=== PATIENT | female | born 1970 | race Hispanic/Latino ===

== ENCOUNTER 2018-03-30 03:38 | Emergency (ER) | payer OTHER ==
[2018-03-30 04:19] LABS: BASOPHILS % (AUTO) 0.7 % (0.0-5.0); EOSINOPHILS % (AUTO) 2.8 % (0.0-8.0); HEMATOCRIT 35.1 % (36-48); LYMPHOCYTES % (AUTO) 37.8 % (21.0-51.0); MEAN CORPUSCULAR HEMOGLOBIN 28.9 pg (27.0-33.0); MEAN CORPUSCULAR HGB CONC 33.9 g/dL (32.0-36.0); MEAN CORPUSCULAR VOLUME 85.2 fL (79-99); MONOCYTES % (AUTO) 7.3 % (3.0-13.0); NEUTROPHILS % (AUTO) 51.4 % (40.0-77.0); PLATELET COUNT (AUTO) 347 K/uL (130-400); RED BLOOD CELL COUNT(AUTO) 4.12 MIL/uL (4.00-5.50); RED CELL DISTRIBUTION WIDTH 14.1 % (11.0-15.5); WHITE BLOOD COUNT (AUTO) 10.8 K/uL (4.8-10.8)
[2018-03-30 04:30] LABS: INR 0.92 (0.85-1.15); PARTIAL THROMBOPLASTIN TIME 25.2 SEC (26.3-35.5); PROTHROMBIN TIME 9.7 SEC (9.6-11.6)
[2018-03-30 04:32] LABS: CREATININE 0.8 mg/dL (0.5-1.5); POTASSIUM 3.4 mmol/L (3.5-5.1)
[2018-03-30 04:38] LABS: ALBUMIN 3.9 g/dL (3.5-5.0); BILIRUBIN,TOTAL 0.3 mg/dL (0.2-1.0); TOTAL PROTEIN, SERUM 7.8 g/dL (6.0-8.3)
[2018-03-30] MEDS ORDERED: LORAZEPAM 2 MG/ML 1 ML VIAL ONE (05:48)
[2018-03-30] MEDS ORDERED: POTASSIUM BICARB/CIT AC 25 MEQ TABLET.EFF ONE (05:56)
== END 2018-03-30 06:53 | disposition home or self-care (01) ==
LOC: EDH 03:38
DX: E87.6 Hypokalemia (principal); R07.9 Chest pain, unspecified; F41.1 Generalized anxiety disorder; E11.9 Type 2 diabetes mellitus without complications; E78.5 Hyperlipidemia, unspecified; Z90.49 Acquired absence of other specified parts of digestive tract
CPT/HCPCS: 36415; 71045; 80053; 82550; 83690; 84484; 85025; 85610; 85730; 93005; 96374; 99285; J2060

== ENCOUNTER 2019-01-23 21:19 | Emergency (ER) | payer OTHER ==
[2019-01-23 22:11] LABS: APPEARANCE,URINE Clear (CLEAR); BILIRUBIN,URINE Negative (NEGATIVE); COLOR,URINE Yellow (YELLOW); GLUCOSE, URINE (UA) Negative (NEGATIVE); KETONES,URINE Negative (NEGATIVE); LEUKOCYTE ESTERASE ,URINE Negative (NEGATIVE); NITRATE,URINE Negative (NEGATIVE); OCCULT BLOOD,URINE Negative (NEGATIVE); PH,URINE 5.5 (5.0-8.0); PROTEIN,URINE Negative (NEGATIVE); UROBILINOGEN,URINE 0.2 mg/dL (0.2-1.0)
[2019-01-23 22:15] LABS: HCG,QUAL RESULT NEGATIVE (NEGATIVE)
[2019-01-23] MEDS ORDERED: DIAZEPAM 5 MG TABLET ONE (22:49)
== END 2019-01-23 23:21 | disposition home or self-care (01) ==
LOC: EDH 21:19
DX: S29.012A Strain of muscle and tendon of back wall of thorax, initial encounter (principal); E11.9 Type 2 diabetes mellitus without complications; E78.5 Hyperlipidemia, unspecified; I10 Essential (primary) hypertension; X58.XXXA Exposure to other specified factors, initial encounter; Y93.89 Activity, other specified; Y92.218 Other school as the place of occurrence of the external cause; Y99.0 Civilian activity done for income or pay
CPT/HCPCS: 81003; 81025

== ENCOUNTER 2019-10-27 15:42 | Emergency (ER) | payer OTHER | END 2019-10-27 18:05 | disposition home or self-care (01) | LOC: EDH 15:42 | DX: R42 Dizziness and giddiness (principal); J30.9 Allergic rhinitis, unspecified; I10 Essential (primary) hypertension; E11.9 Type 2 diabetes mellitus without complications; E78.5 Hyperlipidemia, unspecified; Z90.49 Acquired absence of other specified parts of digestive tract | CPT/HCPCS: 93005 ==

== ENCOUNTER → 2021-01-31 | Outpatient (CLI) | payer OTHER | END | disposition home or self-care (01) | LOC: RAH 09:32 | PROVIDERS: ATTEND Physician Assistant Medical | DX: Z12.31 Encounter for screening mammogram for malignant neoplasm of breast (principal) | CPT/HCPCS: 77067 ==

== ENCOUNTER → 2021-02-09 | Outpatient (CLI) | payer OTHER | END | disposition home or self-care (01) | LOC: RAH 15:35 | PROVIDERS: ATTEND Physical Medicine & Rehabilitation | DX: M43.16 Spondylolisthesis, lumbar region (principal); M47.26 Other spondylosis with radiculopathy, lumbar region; M41.86 Other forms of scoliosis, lumbar region | CPT/HCPCS: 72110 ==

== ENCOUNTER → 2021-03-06 | Outpatient (CLI) | payer OTHER | END | disposition home or self-care (01) | LOC: RAH 12:57 | PROVIDERS: ATTEND Physical Medicine & Rehabilitation | DX: M51.16 Intervertebral disc disorders with radiculopathy, lumbar region (principal); M48.061 Spinal stenosis, lumbar region without neurogenic claudication | CPT/HCPCS: 72148 ==

== ENCOUNTER 2022-11-06 15:24 | Emergency (ER) | payer BC, OTHER ==
[~2022-11-06] VITALS: Ht 160 cm; Wt 87.5 kg
[2022-11-06 16:43] LABS: BASOPHILS % (AUTO) 0.7 % (0.0-5.0); EOSINOPHILS % (AUTO) 2.1 % (0.0-8.0); HEMATOCRIT 34.4 % (36-48); LYMPHOCYTES % (AUTO) 34.3 % (21.0-51.0); MEAN CORPUSCULAR HEMOGLOBIN 26.8 pg (27.0-33.0); MEAN CORPUSCULAR VOLUME 83.7 fL (79-99); MONOCYTES % (AUTO) 8.5 % (3.0-13.0); PLATELET COUNT (AUTO) 290 K/uL (130-400); RED BLOOD CELL COUNT(AUTO) 4.11 MIL/uL (4.00-5.50); RED CELL DISTRIBUTION WIDTH 13.4 % (11.0-15.5); WHITE BLOOD COUNT (AUTO) 12.1 K/uL (4.8-10.8)
[2022-11-06 17:02] LABS: CREATININE 0.8 mg/dL (0.5-1.5); POTASSIUM 3.8 mmol/L (3.5-5.1)
[2022-11-06 17:12] LABS: ALBUMIN 3.7 g/dL (3.5-5.0); TOTAL PROTEIN, SERUM 7.4 g/dL (6.0-8.3)
[2022-11-06] MEDS ORDERED: IBUP-2070 PO (18:20)
[2022-11-06] MEDS ORDERED: CYCL10TA16 PO (18:20)
[2022-11-06] MEDS ORDERED: KETOROLAC 30MG VIAL (30MG/ML) IM ONE (18:30)
[2022-11-06] MEDS ORDERED: CYCLOBENZAPRINE HCL 10 MG TABLET PO ONE (18:30)
[2022-11-06 18:51] VITALS: BP 135/78
== END 2022-11-06 19:05 | disposition home or self-care (01) ==
LOC: EDH 15:24
DX: S16.1XXA Strain of muscle, fascia and tendon at neck level, initial encounter (principal); S46.911A Strain of unspecified muscle, fascia and tendon at shoulder and upper arm level, right arm, initial encounter; E11.9 Type 2 diabetes mellitus without complications; E78.00 Pure hypercholesterolemia, unspecified; I10 Essential (primary) hypertension; Z79.1 Long term (current) use of non-steroidal anti-inflammatories (NSAID); X58.XXXA Exposure to other specified factors, initial encounter; Y93.01 Activity, walking, marching and hiking; Y92.89 Other specified places as the place of occurrence of the external cause; Y99.8 Other external cause status
CPT/HCPCS: 99284; 84484; 80053; 85025; 36415; 96372; 93005; J1885

== ENCOUNTER 2024-04-20 22:20 | Emergency (ER) | payer BC ==
[~2024-04-20] VITALS: Ht 160 cm; Wt 76.7 kg
[~2024-04-20 22:20] MED LIST: CYCL10TA16 PO; IBUP-2070 PO
[2024-04-20 22:50] LABS: APPEARANCE,URINE CLOUDY (CLEAR); BILIRUBIN,URINE 0.5 mg/dL (NEGATIVE); COLOR,URINE DARK-YELLOW (YELLOW); GLUCOSE, URINE (UA) 70 mg/dL (NEGATIVE); KETONES,URINE 5 mg/dL (NEGATIVE); LEUKOCYTE ESTERASE ,URINE 75 Leu/uL (NEGATIVE); NITRATE,URINE NEGATIVE (NEGATIVE); OCCULT BLOOD,URINE SMALL (NEGATIVE); PH,URINE 5.5 (5.0-8.0); PROTEIN,URINE 100 mg/dL (NEGATIVE)
[2024-04-20 22:57] LABS: ADD UA MICROSCOPIC YES
[2024-04-20 23:01] LABS: BASOPHILS # (AUTO) 0.06 K/uL (0.00-0.20); BASOPHILS % (AUTO) 0.4 % (0.0-5.0); HEMATOCRIT 37.9 % (36-48); IMMATURE GRANULOCYTE ABSOLUTE 0.08 K/uL (0-1); LYMPHOCYTES # (AUTO) 0.7 K/uL (1.0-4.8); LYMPHOCYTES % (AUTO) 5.2 % (21.0-51.0); MEAN CORPUSCULAR HEMOGLOBIN 28.5 pg (27.0-33.0); MEAN CORPUSCULAR HGB CONC 32.2 g/dL (32.0-36.0); MEAN CORPUSCULAR VOLUME 88.6 fL (79-99); MONOCYTES # (AUTO) 0.9 K/uL (0.1-1.0); MONOCYTES % (AUTO) 6.2 % (3.0-13.0); NEUTROPHILS # (AUTO) 12.2 K/uL (1.8-7.7); NEUTROPHILS % (AUTO) 87.6 % (40.0-77.0); PLATELET COUNT (AUTO) 213 K/uL (130-400); RED BLOOD CELL COUNT(AUTO) 4.28 MIL/uL (4.00-5.50); RED CELL DISTRIBUTION WIDTH 14.1 % (11.0-15.5)
[2024-04-20 23:02] LABS: BACTERIA,URINE MANY /HPF (None Seen); MUCUS,URINE MANY LPF (None Seen); NON-SQUAMOUS EPITHELIAL CELL 1 /HPF (0-2); SQUAMOUS EPITHELIAL CELL,UR FEW /HPF (0-2)
[2024-04-20 23:24] LABS: CREATININE 1.3 mg/dL (0.5-1.0); POTASSIUM 3.3 mmol/L (3.5-5.1)
[2024-04-20 23:29] LABS: ALBUMIN 3.5 g/dL (3.5-5.0); BILIRUBIN,TOTAL 0.6 mg/dL (0.2-1.0); TOTAL PROTEIN, SERUM 7.5 g/dL (6.0-8.3)
[2024-04-20] MEDS: ONDANSETRON 4MG INJ IVP ONE (23:30)
[2024-04-20] MEDS: 0.9%NACL 1000ML 1,572 ML IV ONE (23:30)
[2024-04-20] MEDS: ACETAMINOPHEN 325 MG TAB PO ONE (23:37)
[2024-04-20] MEDS: CEFTRIAXONE 1G VIAL IVPB SCH (23:46)
[2024-04-21 00:11] VITALS: TEMP 99.5
[2024-04-21] MEDS ORDERED: IOHEXOL 350 MG/ML 100ML INFUS..BTL IV ONE (00:30)
[2024-04-21] MEDS: POTASSIUM BICARB/CIT AC 25 MEQ TABLET.EFF PO ONE (01:24)
[2024-04-21] MEDS ORDERED: ONDA-243 PO (01:42)
[2024-04-21] MEDS ORDERED: CEPH500B PO (01:42)
[2024-04-21 02:02] VITALS: BP 110/72; PULSE 89; RESP 18; O2SAT 100
== END 2024-04-21 02:04 | disposition home or self-care (01) ==
LOC: EDH 22:20
DX: K52.9 Noninfective gastroenteritis and colitis, unspecified (principal); N39.0 Urinary tract infection, site not specified; E87.6 Hypokalemia; E11.65 Type 2 diabetes mellitus with hyperglycemia; R11.2 Nausea with vomiting, unspecified; E11.9 Type 2 diabetes mellitus without complications; I10 Essential (primary) hypertension; Z90.49 Acquired absence of other specified parts of digestive tract; Z79.899 Other long term (current) drug therapy; Z79.2 Long term (current) use of antibiotics
CPT/HCPCS: 99284; 74177; 96374; 96375; 80053; 83690; 85025; 87040 ×2; 87086; 83605 ×2; 81001; 36415 ×2; 93005; 84145; J7030; J0696; J2405; Q9967

== ENCOUNTER 2024-09-22 22:47 | Emergency (ER) | payer BC ==
[~2024-09-22] VITALS: Ht 160 cm; Wt 77.6 kg
[~2024-09-22 22:47] MED LIST changes: +CEPH500B PO; +ONDA-243 PO
[2024-09-22 23:07] LABS: APPEARANCE,URINE CLEAR (CLEAR); BILIRUBIN,URINE NEGATIVE (NEGATIVE); COLOR,URINE LIGHT-YELLOW (YELLOW); GLUCOSE, URINE (UA) NEGATIVE (NEGATIVE); KETONES,URINE NEGATIVE (NEGATIVE); LEUKOCYTE ESTERASE ,URINE NEGATIVE Leu/uL (NEGATIVE); NITRATE,URINE NEGATIVE (NEGATIVE); OCCULT BLOOD,URINE SMALL (NEGATIVE); PH,URINE 5.5 (5.0-8.0); PROTEIN,URINE NEGATIVE (NEGATIVE); UROBILINOGEN,URINE 0.2 mg/dL (0.2-1.0)
[2024-09-22 23:08] LABS: ADD UA MICROSCOPIC YES
[2024-09-22 23:11] LABS: BACTERIA,URINE RARE /HPF (None Seen); MUCUS,URINE RARE LPF (None Seen); WBC,URINE 0-1 /HPF (0-1)
--- NOTE | 2024-09-22 23:45 | ERN ---
ED Note History of Present Illness Stated Complaint: C/O RUQ PAIN Chief Complaint: Abdominal Pain Time Seen by MD: 23:30 Dictation: This is a 54-year-old female who presented to the emergency room with complaints of right upper quadrant abdominal pain. This started this evening and hence she came in for evaluation. Stated that for the past few days she has had severe acid reflux and she could feel in the back of the throat. She denied any history of burning micturition hematuria. She denied any nausea vomitings hematemesis or melena no diarrhea. Temperature 97.5 pulse 78 respirations 17 blood pressure 138/81 pulse oximetry of 98% on room air Her chronic medical problems include diabetes mellitus, hypertension, hypercholesterolemia and previous history of cholecystectomy. Allergies: Coded Allergies: No Known Drug Allergies (Unverified Allergy, Unknown, 11/06/22) Home Meds Active Scripts Omeprazole (Omeprazole) 40 Mg Capsule.dr, 1 CAP PO DAILY for 30 Days, #30 CAP 0 Refills Prov:MILLICENT BATISTA MD 09/23/24 Ondansetron (Ondansetron Odt) 4 Mg Tab.rapdis, 4 MG PO Q6HPRN PRN for nausea, #16 TAB 0 Refills Prov:MACIEJ MAJANO MD 04/21/24 Cephalexin Monohydrate (Keflex) 500 Mg Cap, 500 MG PO BID for 7 Days, #14 CAP Prov:MACIEJ MAJANO MD 04/21/24 Ibuprofen (Ibuprofen) 600 Mg Tablet, 600 MG PO Q6H PRN for PAIN for 5 Days, #20 TAB Prov:SARAI MURILLO [employer] 11/06/22 Cyclobenzaprine HCl (Flexeril) 10 Mg Tab, 10 MG PO TID PRN for PAIN for 3 Days, #9 TAB Prov:SARAI MURILLO [employer] 11/06/22 Past Medical History Past Medical History: Diabetes-Type II, High Cholesterol, Hypertension Surgical History: Cholecystectomy, Other Surgical History Other: LEFT HIP SX Family History: Negative Social History: Negative History: Not Applicable RN Note Reviewed/Agreed w/PFSH: Yes Review of System Dictation Constitutional: Negative for fever,chills, and weight loss Eyes: Negative for injury, pain,redness, and discharge ENT: Negative for injury,pain or swelling Cardiovascular: Negative for chest pain, palpitations, and edema Respiratory: Negative for shortness of breath, cough, and wheezing, Abdomen/GI: Positive for for abdominal pain, nausea, vomiting, diarrhea, and constipation Back: Negative for injury and pain : Negative for injury, bleeding and discharge MS/Extremity: Negative for injury and deformity Skin: Negative for rash, and discoloration Neuro: Negative for headache, weakness, numbness, tingling, and seizure Psych: Negative for suicide ideation, homicidal ideation, and hallucinations Initial Vital Sign VS Vital Signs Date Time Temp Pulse Resp B/P (MAP) Pulse Ox O2 Delivery O2 Flow Rate FiO2 09/22/24 22:51 Room Air 09/22/24 23:27 97.5 78 17 138/81 99 0 21 Physical Exam Dictation General: awake, alert, NAD Head/Face: Normocephalic, atraumatic Eyes: PERRL, EOMI, vision at baseline ENT: oral cavity clear, TMs clear, no signs of infection Neck: Trachea midline, supple, no nuchal rigidity Cardiovascular: RRR, normal S1/S2, No MRGs, no JVD Respiratory: CTAB, no respiratory distress, No rales or wheezes Abdomen: Soft, non-tender, non-distended, normal bowel sounds, no guarding or rebound. Skin: Warm, dry, normal turgor, no rash MS/Extremity: Pulses equal, no cyanosis, neurovascular intact, FROM Neuro: COAx4, GCS 15, strength 5/5, CN 2-12 intact, normal cerebellar exam, nor mal gait, Psych: Normal behavior, mood, and affect normal Extremities-trace edema without any palpable cords, Homans sign is negative Results (Laboratory/Radiology) Laboratory/Radiology Laboratory Tests Test 09/22/24 22:55 09/22/24 23:40 Urine Color LIGHT-YELLOW (YELLOW) Urine Appearance CLEAR (CLEAR) Urine pH 5.5 (5.0-8.0) Urine Specific [place] 1.022 (1.001-1.031) Urine Protein NEGATIVE mg/dL (NEGATIVE) Urine Glucose (UA) NEGATIVE mg/dL (NEGATIVE) Urine Ketones NEGATIVE mg/dL (NEGATIVE) Urine Occult Blood SMALL (NEGATIVE) H Urine Nitrate NEGATIVE (NEGATIVE) Urine Bilirubin NEGATIVE mg/dL (NEGATIVE) Urine Urobilinogen 0.2 mg/dL (0.2-1.0) Urine Leukocyte Esterase NEGATIVE Walt/uL Urine RBC 2-5 /HPF (0-1) H Urine WBC 0-1 /HPF (0-1) Urine Bacteria RARE /HPF (None Seen) White Blood Count 8.8 K/uL (4.8-10.8) Red Blood Count 3.96 MIL/uL (4.00-5.50) L Hemoglobin 10.9 g/dL (12.0-16.0) L Hematocrit 34.3 % (36-48) L Mean Corpuscular Volume 86.6 fL (79-99) Mean Corpuscular Hemoglobin 27.5 pg (27.0-33.0) Mean Corpuscular Hemoglobin Concent 31.8 g/dL (32.0-36.0) L Red Cell Distribution Width 13.9 % (11.0-15.5) Platelet Count 281 K/uL (130-400) Mean Platelet Volume 9.4 fL (7.5-10.5) Immature Granulocyte % (Auto) 0.5 % (0-1) Neutrophils (%) (Auto) 58.1 % (40.0-77.0) Lymphocytes (%) (Auto) 30.8 % (21.0-51.0) Monocytes (%) (Auto) 8.5 % (3.0-13.0) Eosinophils (%) (Auto) 1.5 % (0.0-8.0) Basophils (%) (Auto) 0.6 % (0.0-5.0) Neutrophils # (Auto) 5.2 K/uL (1.8-7.7) Lymphocytes # (Auto) 2.7 K/uL (1.0-4.8) Monocytes # (Auto) 0.8 K/uL (0.1-1.0) Eosinophils # (Auto) 0.13 K/uL (0.00-0.70) Basophils # (Auto) 0.05 K/uL (0.00-0.20) Absolute Immature Granulocyte (auto 0.04 K/uL (0-1) Nucleated Red Blood Cells 0.0 % (0.0-0.19) Sodium Level 140 mmol/L (136-145) Potassium Level 3.8 mmol/L (3.5-5.1) Chloride Level 104 mmol/L (101-111) Carbon Dioxide Level 30 mmol/L (21-32) Blood Urea Nitrogen 15 mg/dL (7-18) Creatinine 1.0 mg/dL (0.5-1.0) Glomerular Filtration Rate Calc 68 mL/min (>90) Random Glucose 227 mg/dL (70-105) H Total Calcium 9.0 mg/dL (8.5-10.1) Lipase 40 U/L (16-77) Labs Reviewed?: Yes ED Course ED Course Orders Procedure Category Date Status Time Vital Signs Per CPOE 09/22/24 Transmitted Routine 22:51 Saline Lock Iv CPOE 09/22/24 Transmitted 22:51 Cbc With Differential LAB 09/22/24 Complete 22:51 Lipase LAB 09/22/24 Complete 22:51 Urinalysis Profile LAB 09/22/24 Complete 22:51 Basic Metabolic Panel LAB 09/22/24 Complete 22:51 Ondansetron 4mg Inj PHA 09/23/24 Complete (Zofran 4mg Inj) 00:00 Lidocaine Hcl 2% PHA 09/23/24 Complete Viscous (Lidocaine Hcl 00:00 Mag/Alum/Simeth 30ml PHA 09/23/24 Complete (Maalox Plus 30ml) 00:00 Pantoprazole 40mg Inj PHA 09/23/24 Complete (Protonix 40mg Inj 00:00 Dicyclomine Hcl PHA 09/23/24 Complete (Bentyl 10mg/5ml 00:00 Current Medications Medications (Trade) Dose Ordered Sig/Damian Route PRN Reason Start Time Stop Time Status Last Admin Dose Admin Al Hydroxide/Mg Hydroxide (MAALox PLUS 30ML) 30 ml ONCE ONCE PO 09/23/24 00:00 09/23/24 00:01 DC 09/22/24 23:52 Dicyclomine HCl (Bentyl 10mg/5ml Syrup) 10 mg ONCE ONCE PO 09/23/24 00:00 09/23/24 00:01 DC 09/22/24 23:53 Lidocaine HCl (Lidocaine HCl 2% Viscous) 10 ml ONCE ONCE PO 09/23/24 00:00 09/23/24 00:01 DC 09/22/24 23:53 Ondansetron HCl (zoFRAN 4MG INJ) 4 mg ONCE ONCE IVP 09/23/24 00:00 09/23/24 00:01 DC 09/22/24 23:52 Pantoprazole Sodium (PROTonix 40MG INJ) 40 mg ONCE ONCE IVP 09/23/24 00:00 09/23/24 00:01 DC 09/22/24 23:52 Vital Signs Date Time Temp Pulse Resp B/P (MAP) Pulse Ox O2 Delivery O2 Flow Rate FiO2 09/23/24 01:25 97.9 81 17 122/87 99 Room Air* 0 21 09/22/24 23:27 97.5 78 17 138/81 99 Room Air* 0 21 09/22/24 22:51 Room Air We will perform diagnostic labs, advanced imaging and administer medications according to the patient's complaint. Once the results are available, will review and personally interpreted the labs to rule out any acute life- threatening emergency the trach require immediate intervention and treatment. I will then re-evaluate the patient after treatment and diagnostic exams have return to determine whether the patient requires any further testing, can safely be discharged home or need further admission to hospital for additional treatment and evaluation. Medical Decision Making MDM MDM: Differential diagnosis: Gastroesophageal reflux disease, esophagitis, gastritis Rationale: Tests considered and ordered secondary to shared decision making include: Previous outside records reviewed: Old ER visits. Risk of complication and/or morbidity or mortality of patient management: None Medications-Per medication reconciliation Need for hospitalization: Patient does not meet criteria for hospitalization. Need for emergency major/minor surgery: No There are no social concerns with this patient. Prescription drug management Prescriptions will include symptomatic care Patient's prior external medical records from other ER visits were reviewed by me as indicated. Prior testing and results from previous visits were reviewed. Prior tests were taken into account with medical decision making and resource utilization, independent historian/historians were used to obtain complete medical history. I independently interpreted the test that were performed, results were reviewed by me and considered findings on radiology if ordered. Medical management and examination interpretation discussions were had by me with other qualified healthcare professionals as indicated for the patient's care. Problem List Problem List: (1) Abdominal pain (2) Gastritis (3) Gastroesophageal reflux disease DX & DISP Disposition: Discharge Departure Impression: Primary Impression: Gastritis Additional Impressions: Gastroesophageal reflux disease, Abdominal pain Condition: Stable Scripts Omeprazole (Omeprazole) 40 Mg Capsule. 1 CAP PO DAILY for 30 Days, #30 CAP 0 Refills Prov: MILLICENT BATISTA MD 09/23/24 Additional Instructions: Patient and the caregiver have been informed of all the diagnostic tests and the imaging conducted during the today's visit to the emergency room and has verbalized understanding of the results I have personally reviewed and interpreted all diagnostic exams performed here in the ER today as well as the vital signs documented by the nursing staff. The patient is now being discharged to home and should follow up with the primary care physician or the specialist as directed by the ER staff. Follow-up with primary care provider in 1 to 2 days. Take medications as directed here in the emergency room. Okay to continue home medications unless otherwise discussed during your visit in the emergency room today. Return to your nearest emergency room if symptoms worsen or if there is no improvement. Call 911 if you need immediate assistance. Take Tylenol or Motrin hiok-ees-[id number] as needed and if no contraindications are present. Increase oral hydration. A wound culture or urine culture was ordered here in the emergency room department please follow-up with primary care provider and advise them to get repeat ports from our facility. If you had any Cheikh wrap/splints that were applied here, please do not remove them until you see your primary care or specialty. Referrals: EILEEN FOSTER MD (PCP) MILLICENT BATISTA MD Sep 22, 2024 23:45
[2024-09-22 23:52] LABS: BASOPHILS # (AUTO) 0.05 K/uL (0.00-0.20); BASOPHILS % (AUTO) 0.6 % (0.0-5.0); EOSINOPHILS # (AUTO) 0.13 K/uL (0.00-0.70); EOSINOPHILS % (AUTO) 1.5 % (0.0-8.0); HEMATOCRIT 34.3 % (36-48); IMMATURE GRANULOCYTE ABSOLUTE 0.04 K/uL (0-1); LYMPHOCYTES # (AUTO) 2.7 K/uL (1.0-4.8); LYMPHOCYTES % (AUTO) 30.8 % (21.0-51.0); MEAN CORPUSCULAR HEMOGLOBIN 27.5 pg (27.0-33.0); MEAN CORPUSCULAR HGB CONC 31.8 g/dL (32.0-36.0); MEAN CORPUSCULAR VOLUME 86.6 fL (79-99); MONOCYTES # (AUTO) 0.8 K/uL (0.1-1.0); MONOCYTES % (AUTO) 8.5 % (3.0-13.0); NEUTROPHILS # (AUTO) 5.2 K/uL (1.8-7.7); NEUTROPHILS % (AUTO) 58.1 % (40.0-77.0); PLATELET COUNT (AUTO) 281 K/uL (130-400); RED BLOOD CELL COUNT(AUTO) 3.96 MIL/uL (4.00-5.50); RED CELL DISTRIBUTION WIDTH 13.9 % (11.0-15.5); WHITE BLOOD COUNT (AUTO) 8.8 K/uL (4.8-10.8)
[2024-09-22] MEDS: ondanSETRON 4MG INJ IVP ONE (23:52)
[2024-09-22] MEDS: PANTOPrazole 40 MG/VIAL IVP ONE (23:52)
[2024-09-22] MEDS: MAG/ALUM/SIMETH 30 ML UDCUP PO ONE (23:52)
[2024-09-22] MEDS: LIDOCAINE HCL 2% VISCOUS 15 ML UDCUP PO ONE (23:53)
[2024-09-22] MEDS: DICYCLOMINE HCL 10 MG/5 ML ML PO ONE (23:53)
[2024-09-23 00:03] LABS: POTASSIUM 3.8 mmol/L (3.5-5.1)
[2024-09-23] MEDS ORDERED: OMEP40CA21 PO (01:12)
[2024-09-23 01:25] VITALS: BP 122/87; PULSE 81; RESP 17; TEMP 97.8; O2SAT 99
== END 2024-09-23 01:26 | disposition home or self-care (01) ==
LOC: EDH 22:47
DX: K29.70 Gastritis, unspecified, without bleeding (principal); K21.9 Gastro-esophageal reflux disease without esophagitis; R10.11 Right upper quadrant pain; E11.9 Type 2 diabetes mellitus without complications; E78.00 Pure hypercholesterolemia, unspecified; I10 Essential (primary) hypertension; Z79.899 Other long term (current) drug therapy; Z90.49 Acquired absence of other specified parts of digestive tract
CPT/HCPCS: 99284; 96374; 96375; 80048; 83690; 85025; 81001; 36415; J2405; J2470